=== PATIENT | male | born 2000 | race Caucasian/White ===

== ENCOUNTER 2021-04-11 18:25 | Emergency (ER) | payer OTHER ==
[2021-04-11 18:40] VITALS: BP 113/89; PULSE 74; O2SAT 99
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
== END 2021-04-11 18:59 | disposition left against medical advice (07) ==
LOC: ED 18:25
DX: S06.0X1A Concussion with loss of consciousness of 30 minutes or less, initial encounter (principal); V48.6XXA Car passenger injured in noncollision transport accident in traffic accident, initial encounter; F19.10 Other psychoactive substance abuse, uncomplicated
CPT/HCPCS: 99285